=== PATIENT | male | born 1985 ===

== ENCOUNTER 2018-12-14 04:56 | Inpatient (IN) | payer OTHER ==
[2018-12-14 05:10] LABS: ADD MAN DIFF? NO
[2018-12-14 05:15] LABS: ABNORMAL IP MESSAGE 1; BASOPHIL # 0.1 10^3/ul (0.0-0.1); BASOPHILS % 0.5 % (0.0-2.0); EOSINOPHILS # 0.1 10^3/ul (0.0-0.5); EOSINOPHILS % 1.1 % (0.0-7.0); HEMATOCRIT 43.9 % (42.0-52.0); HEMOGLOBIN 15.2 g/dl (14.0-18.0); LYMPHOCYTES # 3.5 10^3/ul (0.8-2.9); LYMPHOCYTES % 28.5 % (15.0-51.0); MEAN CORPUSCULAR HEMOGLOBIN 30.6 pg (29.0-33.0); MEAN CORPUSCULAR HGB CONC 34.6 g/dl (32.0-37.0); MEAN CORPUSCULAR VOLUME 88.3 fl (82.0-101.0); MEAN PLATELET VOLUME 9.7 fl (7.4-10.4); MONOCYTE # 1.7 10^3/ul (0.3-0.9); MONOCYTES % 13.9 % (0.0-11.0); NEUTROPHIL # 6.9 10^3/ul (1.6-7.5); NEUTROPHILS % 55.8 % (39.0-77.0); PLATELET COUNT 216 10^3/UL (140-415); POSITIVE DIFF @See below; RED BLOOD COUNT 4.97 10^6/ul (4.70-6.10); RED CELL DISTRIBUTION WIDTH 12.9 % (11.5-14.5)
[2018-12-14 05:15] LABS: WHITE BLOOD COUNT 12.3 10^3/ul (4.8-10.8)
[2018-12-14 05:34] LABS: ALANINE AMINOTRANSFERASE 67 IU/L (13-69); ALBUMIN 3.8 g/dl (3.3-4.9); ALBUMIN/GLOBULIN RATIO 1.15; ALKALINE PHOSPHATASE 94 IU/L (42-121); ANION GAP 9 (5-13); ASPARTATE AMINO TRANSFERASE 94 IU/L (15-46); BILIRUBIN,INDIRECT 1.2 mg/dl (0-1.1); BILIRUBIN,TOTAL 1.2 mg/dl (0.2-1.3); BLOOD UREA NITROGEN 25 mg/dl (7-20); CALCIUM 8.2 mg/dl (8.4-10.2); CARBON DIOXIDE 28 mmol/L (21-31); CHLORIDE 101 mmol/L (97-110); CREATININE 1.13 mg/dl (0.61-1.24); Estimated GFR > 60 mL/min (>60); GLUCOSE 107 mg/dl (70-220); POTASSIUM 3.6 mmol/L (3.5-5.1); SODIUM 138 mmol/L (135-144); TOTAL PROTEIN 7.1 g/dl (6.1-8.1)
[2018-12-14] MEDS: SOD CHLORIDE 0.9% 1,000 ML IV ×5 (05:39→21:27)
[2018-12-14] MEDS: LORAZEPAM 2 MG INJ IV (05:39)
[2018-12-14 05:43] LABS: ADD UMIC YES; UR ASCORBIC ACID NEGATIVE (NEGATIVE); UR BACTERIA FEW /HPF (NONE SEEN); UR BILIRUBIN (Dip) NEGATIVE (NEGATIVE); UR BLOOD (Dip) NEGATIVE (NEGATIVE); UR CLARITY CLEAR (CLEAR); UR COLOR AMBER (YELLOW); UR GLUCOSE (Dip) NEGATIVE (NEGATIVE); UR KETONES (Dip) NEGATIVE (NEGATIVE); UR LEUKOCYTE ESTERASE (Dip) NEGATIVE Leu/ul (NEGATIVE); UR NITRITE (Dip) NEGATIVE (NEGATIVE); UR RBC 1 /HPF (0-5); UR TOTAL PROTEIN (Dip) 1+ mg/dl (NEGATIVE); UR UROBILINOGEN (Dip) 2+ mg/dL (NEGATIVE); UR WBC 1 /HPF (0-5)
[2018-12-14 05:45] LABS: ACETAMINOPHEN < 10.0 ug/ml (10.0-30.0); ETHANOL < 10.0 mg/dl (0-0); SALICYLATE < 1.0 mg/dl (5.0-30.0)
[2018-12-14 05:56] LABS: CREATINE KINASE 1585 IU/L (23-200)
[2018-12-14 06:09] LABS: TROPONIN-I < 0.012 ng/ml (0.000-0.120)
[2018-12-14 06:11] LABS: AMPHETAMINE/METHAMPHETAMINE POSITIVE (NEGATIVE)
[2018-12-14 06:12] LABS: BARBITURATES NEGATIVE (NEGATIVE); BENZODIAZEPINES NEGATIVE (NEGATIVE); CANNABINOIDS NEGATIVE (NEGATIVE); COCAINE NEGATIVE (NEGATIVE); OPIATES POSITIVE (NEGATIVE)
[2018-12-14] MEDS: LORAZEPAM 1 MG TAB PO (09:53)
[2018-12-14 11:06] LABS: CREATINE KINASE 1297 IU/L (23-200)
[2018-12-14] MEDS ORDERED: ONDANSETRON 4 MG INJ IV ×2 (12:30→14:00)
[2018-12-14] MEDS ORDERED: NACL 0.9% 3 ML SYG IV (12:30)
[2018-12-14] MEDS ORDERED: LORAZEPAM 2 MG INJ IV (12:30)
[2018-12-14] MEDS ORDERED: HALOPERIDOL 5 MG INJ IM (13:00)
[2018-12-14] MEDS ORDERED: ACETAMINOPHEN 325 MG TAB PO (14:00)
[2018-12-15] MEDS: HYDROCODONE/APAP (5/325) TAB PO (00:14)
[2018-12-15] MEDS: SOD CHLORIDE 0.9% 1,000 ML IV ×4 (04:21→21:54)
[2018-12-15 06:38] LABS: ADD MAN DIFF? NO
[2018-12-15 06:41] LABS: BASOPHIL # 0.1 10^3/ul (0.0-0.1); BASOPHILS % 1.2 % (0.0-2.0); EOSINOPHILS # 0.2 10^3/ul (0.0-0.5); EOSINOPHILS % 3.8 % (0.0-7.0); HEMATOCRIT 44.6 % (42.0-52.0); HEMOGLOBIN 14.8 g/dl (14.0-18.0); LYMPHOCYTES # 2.7 10^3/ul (0.8-2.9); LYMPHOCYTES % 45.1 % (15.0-51.0); MEAN CORPUSCULAR HEMOGLOBIN 30.6 pg (29.0-33.0); MEAN CORPUSCULAR HGB CONC 33.2 g/dl (32.0-37.0); MEAN CORPUSCULAR VOLUME 92.3 fl (82.0-101.0); MEAN PLATELET VOLUME 10.1 fl (7.4-10.4); MONOCYTE # 0.7 10^3/ul (0.3-0.9); MONOCYTES % 11.1 % (0.0-11.0); NEUTROPHIL # 2.3 10^3/ul (1.6-7.5); NEUTROPHILS % 38.6 % (39.0-77.0); PLATELET COUNT 191 10^3/UL (140-415); RED BLOOD COUNT 4.83 10^6/ul (4.70-6.10)
[2018-12-15 07:26] LABS: ALANINE AMINOTRANSFERASE 49 IU/L (13-69); ALBUMIN/GLOBULIN RATIO 1.03; ALKALINE PHOSPHATASE 87 IU/L (42-121); ANION GAP 5 (5-13); ASPARTATE AMINO TRANSFERASE 54 IU/L (15-46); BILIRUBIN,INDIRECT 0.4 mg/dl (0-1.1); BILIRUBIN,TOTAL 0.4 mg/dl (0.2-1.3); BLOOD UREA NITROGEN 18 mg/dl (7-20); CALCIUM 7.7 mg/dl (8.4-10.2); CARBON DIOXIDE 27 mmol/L (21-31); CHLORIDE 109 mmol/L (97-110); CREATINE KINASE 577 IU/L (23-200); CREATININE 0.84 mg/dl (0.61-1.24); Estimated GFR > 60 mL/min (>60); GLUCOSE 102 mg/dl (70-220); POTASSIUM 4.1 mmol/L (3.5-5.1); SODIUM 141 mmol/L (135-144); TOTAL PROTEIN 5.9 g/dl (6.1-8.1)
[2018-12-15 07:31] LABS: CK INDEX 0.9; TROPONIN-I < 0.012 ng/ml (0.000-0.120)
[2018-12-15 07:37] LABS: MAGNESIUM 2.2 mg/dl (1.7-2.5)
[2018-12-15 07:37] LABS: PHOSPHORUS 3.6 mg/dl (2.5-4.9)
[2018-12-15 08:14] LABS: CK-MB 5.19 ng/ml (0.0-2.4)
[2018-12-15] MEDS: ENOXAPARIN 40 MG/0.4 ML SYG SC (09:17)
[2018-12-15 09:22] LABS: CHOL/HDL RATIO 2.3 RATIO; HDL CHOLESTEROL 38 mg/dl (28-63); LDL CHOLESTEROL,CALCULATED 43 mg/dl; TRIGLYCERIDES 52 mg/dl (0-149)
[2018-12-15 09:22] LABS: CHOLESTEROL 91 mg/dl (100-200)
[2018-12-15 17:05] LABS: CREATINE KINASE 406 IU/L (23-200)
[2018-12-15 17:17] LABS: CK INDEX 0.9; TROPONIN-I < 0.012 ng/ml (0.000-0.120)
[2018-12-15 17:21] LABS: CK-MB 3.56 ng/ml (0.0-2.4)
[2018-12-16] MEDS: SOD CHLORIDE 0.9% 1,000 ML IV ×2 (05:35→13:31)
[2018-12-16 05:54] LABS: ALANINE AMINOTRANSFERASE 48 IU/L (13-69); ALBUMIN 2.9 g/dl (3.3-4.9); ALBUMIN/GLOBULIN RATIO 0.96; ALKALINE PHOSPHATASE 110 IU/L (42-121); ANION GAP 5 (5-13); ASPARTATE AMINO TRANSFERASE 38 IU/L (15-46); BILIRUBIN,INDIRECT 0.2 mg/dl (0-1.1); BILIRUBIN,TOTAL 0.2 mg/dl (0.2-1.3); BLOOD UREA NITROGEN 14 mg/dl (7-20); CARBON DIOXIDE 26 mmol/L (21-31); CHLORIDE 111 mmol/L (97-110); CREATININE 0.79 mg/dl (0.61-1.24); Estimated GFR > 60 mL/min (>60); GLUCOSE 99 mg/dl (70-220); SODIUM 142 mmol/L (135-144); TOTAL PROTEIN 5.9 g/dl (6.1-8.1)
[2018-12-16 06:04] LABS: CK-MB 2.15 ng/ml (0.0-2.4); TROPONIN-I < 0.012 ng/ml (0.000-0.120)
[2018-12-16 06:09] LABS: CK INDEX 0.9; CREATINE KINASE 247 IU/L (23-200); MAGNESIUM 2.2 mg/dl (1.7-2.5)
[2018-12-16 06:09] LABS: PHOSPHORUS 3.5 mg/dl (2.5-4.9)
[2018-12-16] MEDS: ESCITALOPRAM 10 MG TAB PO (08:35)
[2018-12-16] MEDS: ENOXAPARIN 40 MG/0.4 ML SYG SC (08:36)
== END 2018-12-16 20:06 | DRG 918 ==
LOC: E/R 04:56 → 5EC 13:47
DX: T42.6X2A Poisoning by other antiepileptic and sedative-hypnotic drugs, intentional self-harm, initial encounter (principal); M62.82 Rhabdomyolysis; E66.9 Obesity, unspecified; F15.159 Other stimulant abuse with stimulant-induced psychotic disorder, unspecified; F11.159 Opioid abuse with opioid-induced psychotic disorder, unspecified; Z68.33 Body mass index [BMI] 33.0-33.9, adult; B18.2 Chronic viral hepatitis C; F17.200 Nicotine dependence, unspecified, uncomplicated
CPT/HCPCS: 36415; 80053; 80061; 80307; 81001; 82550; 82553; 83036; 83605; 83735; 84100; 84484; 85025; 93005; 96361; 96374; 99285-25